=== PATIENT | female | born 1950 | race Caucasian/White ===

== ENCOUNTER → 2017-02-04 | Outpatient (CLI) | payer OTHER | LOC: MC.RAD 10:00 | DX: Z12.31 Encounter for screening mammogram for malignant neoplasm of breast (principal) ==

== ENCOUNTER 2017-07-08 05:30 | Day surgery (SDC) | payer MEDICARE, OTHER ==
[2017-07-08] VITALS (11 sets, daily range): BP systolic 87–123; BP diastolic 34–67; PULSE 65–87; TEMP 97.3–98.1
[~2017-07-08] VITALS: Ht 160 cm; Wt 73.0 kg
[2017-07-08] MEDS ORDERED: TUMS500 MG PO (06:52)
[2017-07-08] MEDS ORDERED: CALTRATE 600 +1 TAB PO (06:52)
[2017-07-08] MEDS ORDERED: ESTRACE0.1 MG/GM VG (06:53)
[2017-07-08] MEDS ORDERED: PEPCID 20MG TAB20 MG PO (06:54)
[2017-07-08] MEDS ORDERED: MULTIPLE VITAMI1 CAP PO (06:54)
[2017-07-08] MEDS ORDERED: METAMUCIL FIBE1 EACH PO (06:55)
[2017-07-08] MEDS ORDERED: PROBIOTIC FORMU1 CAP PO (06:55)
[2017-07-08] MEDS ORDERED: PERCOCET 325 MG1 TA2 PO (07:12)
[2017-07-08] MEDS ORDERED: MOTRIN 800800 MG/TAB PO (07:12)
== END 2017-07-08 21:22 | disposition home or self-care (01) ==
LOC: SDCO 05:30 → OB 17:36 → SDCO 21:22
DX: D25.9 Leiomyoma of uterus, unspecified (principal); N95.0 Postmenopausal bleeding; N80.9 Endometriosis, unspecified; K21.9 Gastro-esophageal reflux disease without esophagitis; Z80.0 Family history of malignant neoplasm of digestive organs; Z83.3 Family history of diabetes mellitus; Z82.3 Family history of stroke; Z83.49 Family history of other endocrine, nutritional and metabolic diseases
CPT/HCPCS: OP; A4315; C1713; J0690; J1100; J1885; J2250; J2270; J2405; J2704; J2710; J3010

== ENCOUNTER → 2018-10-24 | Outpatient (CLI) | payer MEDICARE, OTHER ==
[~2018-10-24] MED LIST: CALTRATE 600 +1 TAB PO; ESTRACE0.1 MG/GM VG; METAMUCIL FIBE1 EACH PO; MOTRIN 800800 MG/TAB PO; MULTIPLE VITAMI1 CAP PO; PEPCID 20MG TAB20 MG PO; PERCOCET 325 MG1 TA2 PO; PROBIOTIC FORMU1 CAP PO; TUMS500 MG PO
== END ==
LOC: MC.RAD 08:29
DX: Z12.31 Encounter for screening mammogram for malignant neoplasm of breast (principal)

== ENCOUNTER → 2019-10-25 | Outpatient (CLI) | payer MEDICARE, OTHER | LOC: MC.RAD 07:00 | DX: Z12.31 Encounter for screening mammogram for malignant neoplasm of breast (principal); R92.2 Inconclusive mammogram ==

== ENCOUNTER → 2019-10-30 | Outpatient (CLI) | payer MEDICARE, OTHER | LOC: MC.RAD 12:50 | DX: N64.89 Other specified disorders of breast (principal) ==

== ENCOUNTER → 2019-11-05 | Outpatient (CLI) | payer MEDICARE, OTHER | LOC: MC.RAD 06:56 | DX: N64.89 Other specified disorders of breast (principal) ==

== ENCOUNTER 2024-03-14 11:00 | Outpatient (RCR) | payer MEDICARE | END 2024-03-16 09:53 | disposition home or self-care (01) | LOC: PT.GENESIS 11:00 | DX: N94.9 Unspecified condition associated with female genital organs and menstrual cycle (principal) ==